=== PATIENT | female | born 1935 | race Caucasian/White ===

== ENCOUNTER 2017-02-06 13:47 | Emergency (ER) | payer OTHER ==
[~2017-02-06] VITALS: Ht 160 cm; Wt 72.6 kg
[~2017-02-06 13:47] MED LIST: ALEN70SO PO; AML5T PO; ASPI81CH43 PO; ATEN-60 PO; CALC-312 PO; CLOP75TA28 PO; ISOS30TA4 PO; LISI-646 PO; LOVA40TA72 PO; OMEP20CA74 PO; POT10T PO; [UNRECOGNIZED DRUG - CODE] IM; [UNRECOGNIZED DRUG - CODE] PO
[2017-02-06 14:49] LABS: Basophils # (auto) 0 uL; Basophils % (auto) 0.5 % (0.0-2.0); Eosinophils # (auto) 0.1 uL; Eosinophils % (auto) 1.8 % (0.0-7.0); Hemoglobin 11.8 g/dL (12.2-16.2); Lymphocytes # (auto) 0.8 uL; Lymphocytes % (auto) 9.9 % (10.0-50.0); Mean Corpuscular Hemoglobin 32.1 pg (28.0-32.0); Mean Corpuscular Hgb Conc. 33.7 g/dL (32.0-36.0); Mean Corpuscular Volume 95.4 fL (80.0-100.0); Mean Platelet Volume 8.3 fL (7.4-10.4); Monocytes # (auto) 0.7 uL; Monocytes % (auto) 8.9 % (0.0-12.0); Neutrophils % (auto) 78.9 % (37.0-80.0); Platelet Count (auto) 261 10^3/uL (140-450); Red Cell Distribution Width 14.7 % (11.6-16.0); White Blood Cell 7.6 10^3/uL (4.4-10.8)
[2017-02-06 15:15] LABS: Albumin 3.8 g/dL (3.4-5.0); Anion Gap 12 (5-15); Aspartate Aminotransferase 19 U/L (15-37); Blood Urea Nitrogen 13 mg/dL (7-18); Calcium 8.9 mg/dL (8.5-10.1); Carbon Dioxide 23 mmol/L (21-32); Chloride 111 mmol/L (98-107); GFR African American 119 mL/min; GFR Non-African American 98 mL/min; Glucose 123 mg/dL (74-106); Magnesium 2.2 mg/dL (1.6-2.6); Sodium 146 mmol/L (136-145)
[2017-02-06 15:20] LABS: Alkaline Phosphatase 50 U/L (45-117); Bilirubin, Total 0.3 mg/dL (0.2-1.0)
[2017-02-06] MEDS ORDERED: SODIUM CHLORIDE 0.9% 1,000 ML IV ONE (15:20)
[2017-02-06 16:16] LABS: B-Type Natriuretic Peptide 132.99 pg/mL (0-100)
[2017-02-06 16:17] LABS: Temperature: 23.1 C (20.0-25.0)
[2017-02-06 16:20] LABS: INR 0.97 (0.9-1.15); Partial Thromboplastin Time 25.7 sec (22.64-33.71); Prothrombin Time 10.6 sec (9.37-12.3)
[2017-02-06] MEDS ORDERED: IOHEXOL 350 MG/ML 100ML IJ ONE (17:50)
[2017-02-06 18:58] LABS: Urine Bilirubin Negative (Negative); Urine Blood Negative /uL (Negative); Urine Color Yellow (Yellow); Urine Glucose Normal (Normal); Urine Ketone Negative (Negative); Urine Nitrite Negative (Negative); Urine RBC 1 /hpf (0 - 4); Urine Squamous Epithelial Cell FEW /hpf (<5); Urine Urobilinogen Normal (Negative); Urine pH 6.5 (5.0-8.0)
[2017-02-06] MEDS ORDERED: GABAPENTIN 400 MG CAP PO ONE (20:15)
[2017-02-06] MEDS ORDERED: LISINOPRIL 20 MG TAB PO ONE (20:15)
[2017-02-06] MEDS ORDERED: CARVEDILOL 12.5 MG TAB PO ONE (20:15)
[2017-02-06 21:04] VITALS: BP 161/104
== END 2017-02-06 23:41 | disposition home or self-care (01) ==
LOC: EDBD 13:47 → ER 13:47
DX: R07.9 Chest pain, unspecified (principal); R06.02 Shortness of breath; I10 Essential (primary) hypertension; R79.1 Abnormal coagulation profile; M19.90 Unspecified osteoarthritis, unspecified site; I25.10 Atherosclerotic heart disease of native coronary artery without angina pectoris; K21.9 Gastro-esophageal reflux disease without esophagitis; E78.5 Hyperlipidemia, unspecified; I25.2 Old myocardial infarction; M81.0 Age-related osteoporosis without current pathological fracture; Z88.6 Allergy status to analgesic agent; Z88.8 Allergy status to other drugs, medicaments and biological substances; Z90.49 Acquired absence of other specified parts of digestive tract; Z90.710 Acquired absence of both cervix and uterus; Z79.899 Other long term (current) drug therapy
CPT/HCPCS: 36415; 71020; 71275; 80053; 81001; 83735; 83880; 84443; 84484; 85025; 85379; 85610; 85730; 93005; 94761; 96360; 96361; 99285; Q9967